=== PATIENT | female | born 1960 | race Two or more races ===

== ENCOUNTER 2024-05-20 08:30 | Inpatient (IN) | payer OTHER ==
[~2024-05-20] VITALS: Ht 162.6 cm; Wt 78.0 kg
[~2024-05-20 08:30] MED LIST: LEVAQUIN750 MG PO
[2024-05-20] MEDS ORDERED: LIPITOR40 M1 PO (09:39)
[2024-05-20 09:54] LABS: HEMATOCRIT 38.3 % (36.0-45.00); HEMOGLOBIN 13.3 g/dL (12.0-15.00); MEAN CELL VOLUME 92.6 fL (80.00-100.00); MEAN CORPUSCULAR HEMOGLOBIN 32.3 pg (27.00-32.0); MEAN CORPUSCULAR HGB CONC 34.9 g/dl (32.0-36.0); PLATELET COUNT 343 K/uL (150-450); RED BLOOD COUNT 4.13 M/uL (4.00-6.00); RED CELL DISTRIBUTION WIDTH 13.9 % (11.5-14.5)
[2024-05-20 10:17] LABS: INR 1.01
[2024-05-20 10:56] LABS: ALBUMIN 4.2 gm/dL (3.4-5.0); BILIRUBIN TOTAL 1.28 mg/dL (0.3-1.2); CALCIUM 10.2 mg/dL (8.5-10.1); CREATININE SERUM 0.45 mg/dL (0.55-1.02); GFR 139.83; GLOBULINA 3.8 G/DL (2.4-3.5); POTASSIUM 3.88 mEq/L (3.5-5.1)
[2024-05-20 10:58] LABS: PH,URINE 7.5 (5.0-8.0); URINE APPEARANCE Cloudy; URINE BILIRRUBIN Negative (NEGATIVE); URINE BLOOD Negative; URINE COLOR Yellow; URINE GLUCOSE Negative (NEGATIVE); URINE KETONE Negative (NEGATIVE); URINE LEUKOCYTE Negative; URINE NITRATE Negative; URINE PROTEIN Negative (NEGATIVE); URINE UROBILINOGEN 0.2 E.U./dl
[2024-05-20 11:03] LABS: URINE EPITHELIAL CELLS 1.8 uL (0.0-38.8); URINE RBC 29.4 uL (0.0-20.8); URINE WBC 1.8 uL (0.0-23.2)
[2024-05-20 11:19] LABS: URINE CAST 0.15 uL (0.0-1.40)
[2024-05-26] MEDS ORDERED: CEFOXITIN SODIUM 2,000 MG VIAL IV ONE (11:30)
[2024-05-26] MEDS ORDERED: TRANEXAMIC ACID 100MG/1ML (1000MG) AMPUL IV ONE ×2 (11:30)
[2024-05-26] MEDS ORDERED: THROMBIN,HU/FIBRINOGEN/CALCIUM 10 ML SYRINGE TOP ONE (12:30)
[2024-05-26] MEDS ORDERED: KETOROLAC TROMETHAMINE 60 MG VIAL IM ONE (12:30)
[2024-05-26] MEDS ORDERED: GENTAMICIN SULFATE 40 MG/ML VIAL IV SCH (14:06)
[2024-05-26] MEDS ORDERED: MORPHINE SULFATE 4 MG/ML CARTRIDGE IV PRN (14:15)
[2024-05-26] MEDS ORDERED: MORPHINE SULFATE 2 MG/ML CARTRIDGE IV ONE ×2 (14:15→15:15)
[2024-05-26] MEDS ORDERED: SODIUM CHLORIDE 0.45 % 1,000 ML IV SCH (14:15)
[2024-05-26] MEDS ORDERED: ONDANSETRON HCL 2 MG/ML VIAL IV PRN (14:15)
[2024-05-26 15:22] LABS: HEMATOCRIT 35.1 % (36.0-45.00); HEMOGLOBIN 11.9 g/dL (12.0-15.00); RED BLOOD COUNT 3.76 M/uL (4.00-6.00)
[2024-05-26] MEDS ORDERED: CEFAZOLIN SODIUM 1,000 MG VIAL IV SCH (18:00)
[2024-05-26 18:23] VITALS: BP 112/73; O2SAT 95
[2024-05-27] VITALS: BP 110/59; O2SAT 95
[2024-05-27 06:44] LABS: HEMATOCRIT 31.1 % (36.0-45.00); HEMOGLOBIN 10.8 g/dL (12.0-15.00); MEAN CELL VOLUME 92.3 fL (80.00-100.00); MEAN CORPUSCULAR HEMOGLOBIN 31.9 pg (27.00-32.0); MEAN CORPUSCULAR HGB CONC 34.6 g/dl (32.0-36.0); PLATELET COUNT 297 K/uL (150-450); RED BLOOD COUNT 3.37 M/uL (4.00-6.00); RED CELL DISTRIBUTION WIDTH 14.1 % (11.5-14.5)
[2024-05-27 08:00] VITALS: BP 111/69; O2SAT 95
[2024-05-27] MEDS ORDERED: ACETAMINOPHEN WITH CODEINE 1 UDTAB TABLET PO PRN (08:00)
[2024-05-27] MEDS ORDERED: IRON FUM,PS/FOLIC/BCOMP,C NO.9 1 CAP CAPSULE PO SCH (09:00)
[2024-05-27] MEDS ORDERED: SENNA/DOCUSATE SODIUM 1 TAB TABLET PO SCH (09:00)
[2024-05-27] MEDS ORDERED: BACITRACIN 28.35 GM OINT.TUBE TOP SCH (09:00)
[2024-05-27] MEDS ORDERED: RIVAROXABAN 10 MG TAB PO SCH (09:00)
[2024-05-27] MEDS ORDERED: ATORVASTATIN CALCIUM 40 MG TABLET PO SCH (09:00)
[2024-05-27] MEDS ORDERED: Cyanocobalamin/Mecobalamin 1 TAB.SL SL SCH (12:00)
[2024-05-27 16:00] VITALS: BP 118/80; O2SAT 97
[2024-05-28 00:59] VITALS: BP 119/62; O2SAT 98
[2024-05-28 06:10] LABS: HEMATOCRIT 30.9 % (36.0-45.00); HEMOGLOBIN 10.8 g/dL (12.0-15.00); MEAN CELL VOLUME 93.8 fL (80.00-100.00); MEAN CORPUSCULAR HEMOGLOBIN 32.7 pg (27.00-32.0); MEAN CORPUSCULAR HGB CONC 34.8 g/dl (32.0-36.0); PLATELET COUNT 297 K/uL (150-450); RED CELL DISTRIBUTION WIDTH 13.4 % (11.5-14.5)
[2024-05-28] MEDS ORDERED: Septra Ds Tablet PO (06:29)
[2024-05-28] MEDS ORDERED: ACETAMINOPHEN-1 EAC2 PO (06:29)
[2024-05-28] MEDS ORDERED: XARELTO10 MG PO (06:29)
[2024-05-28] MEDS ORDERED: INTEGRA PLUS C1 EACH PO (06:29)
[2024-05-28 09:00] VITALS: BP 126/73; O2SAT 95
[2024-05-28] MEDS ORDERED: SULFAMETHOXAZOLE/TRIMETHOPRIM DS 1 TAB PO SCH (09:00)
[2024-05-28] MEDS ORDERED: PANTOPRAZOLE SODIUM 40 MG TABLET.DR PO SCH (09:00)
[2024-05-28 17:20] VITALS: BP 113/69; O2SAT 95
[2024-05-29 01:28] VITALS: BP 107/65; O2SAT 98
== END 2024-05-29 10:09 | DRG 470 ==
LOC: SURH 05-26 06:44 → O/R 05-26 06:44 → SURH 05-26 08:30
PROVIDERS: ADMIT Orthopaedic Surgery Sports Medicine; ATTEND Orthopaedic Surgery Sports Medicine
PROC: 0SR903Z Replacement of Right Hip Joint with Ceramic Synthetic Substitute, Open Approach (ICD-10-PCS; principal; 2024-05-26 10:30)
DX: M16.11 Unilateral primary osteoarthritis, right hip (principal); D64.9 Anemia, unspecified; E78.5 Hyperlipidemia, unspecified